=== PATIENT | female | born 1990 | race Two or more races ===

== ENCOUNTER 2017-09-01 23:15 | Emergency (ER) | payer SELFPAY ==
[2017-09-01 23:23] VITALS: BP 118/78; PULSE 84; TEMP 98.2; BMI 35.5
--- NOTE | 2017-09-01 23:33 | PDOC ---
History of Present Illness - General Chief Complaint: Chest Pain Stated Complaint: CHEST PAIN Time Seen by Provider: 09/01/17 23:17 - History of Present Illness Initial Comments: 09/01/17 23:30 26 F with no PMH presents to ER with chest pain. Pt states that the pain began while at rest at about 7pm (4.5 hours prior to arrival to ER). She states that it was midsternal nonradiating. Pt denies any SOB associated with the pain and denies any exacerbating or alleviating factors. Pain is nonexertional, non- pleuritic. She denies F/C. Denies cough. She states that she felt very anxious at the time but is unsure whether the anxiety began before or after the pain. She denies h/o panic attacks or anxiety. Pt denies leg swelling, denies h/o DVT/ PE. Denies recent immobilization or travel. Is not on OCPs. Pt states that she had a similar episode several years ago but did not seek medical attention at the time. Past History - Past Medical History Allergies/Adverse Reactions: Allergies Allergy/AdvReac Type Severity Reaction Status Date / Time No Known Allergies Allergy Unverified 09/01/17 23:18 Home Medications: Ambulatory Orders NK [No Known Home Medication] 09/01/17 - Suicide/Smoking/Psychosocial Hx Smoking History: Unknown if ever smoked Have you smoked in the past 12 months: No Number of Cigarettes Smoked Daily: 0 Information on smoking cessation initiated: No Hx Alcohol Use: No Drug/Substance Use Hx: No Substance Use Type: None Review of Systems - Review of Systems Comments:: 09/01/17 23:32 "GENERAL/CONSTITUTIONAL: No fever or chills. No weakness. HEAD, EYES, EARS, NOSE AND THROAT: No change in vision. No ear pain or discharge. No sore throat. CARDIOVASCULAR: + chest pain , no shortness of breath. RESPIRATORY: No cough, wheezing, or hemoptysis. GASTROINTESTINAL: No nausea, vomiting, diarrhea or constipation. GENITOURINARY: No dysuria, frequency, or change in urination. MUSCULOSKELETAL: No joint or muscle swelling or pain. No neck or back pain. SKIN: No rash NEUROLOGIC: No headache, vertigo, loss of consciousness, or change in strength/ sensation. ENDOCRINE: No increased thirst. No abnormal weight change. HEMATOLOGIC/LYMPHATIC: No anemia, easy bleeding, or history of blood clots. ALLERGIC/IMMUNOLOGIC: No hives or skin allergy. " *Physical Exam - Vital Signs Last Vital Signs Temp Pulse Resp BP Pulse Ox 98.2 F 84 14 118/78 100 09/01/17 23:19 09/01/17 23:19 09/01/17 23:19 09/01/17 23:19 09/01/17 23:19 - Physical Exam Comments: 09/01/17 23:32 "GENERAL: Awake, alert, and fully oriented, in no acute distress HEAD: No signs of trauma EYES: PERRLA, EOMI, sclera anicteric, conjunctiva clear ENT: Auricles normal inspection, hearing grossly normal, nares patent, oropharynx clear without exudates. Moist mucosa NECK: Nontender, no stepoffs, Normal ROM, supple, no lymphadenopathy, JVD, or masses LUNGS: Breath sounds equal, clear to auscultation bilaterally. No wheezes, and no crackles HEART: Regular rate and rhythm, normal S1 and S2, no murmurs, rubs or gallops ABDOMEN: Soft, nontender, normoactive bowel sounds. No guarding, no rebound. No masses EXTREMITIES: Normal range of motion, no edema. No clubbing or cyanosis. No cords, erythema, or tenderness NEUROLOGICAL: Cranial nerves II through XII intact. 5/5 strength and sensation in all extremities, Normal speech, normal gait SKIN: Warm, Dry, normal turgor, no rashes or lesions noted. " Heart Score/ECG Review - History History: Slightly suspicious - Electrocardiogram EKG: Normal - Age Age: </= 45 - Risk Factors Based on the list above the patient has:: No risk factors known - Troponin Troponin: </= normal limit - Score Heart Score - Total: 0 - ECG Impressions Comment:: 09/01/17 23:54 NSR, no OTTO/STDs, no TWIs, intervals wnl, axis wnl ED Treatment Course - LABORATORY CBC & Chemistry Diagram: 09/01/17 23:30 09/01/17 23:30 - ADDITIONAL ORDERS Additional order review: Laboratory Results 09/01/17 09/01/17 09/01/17 23:30 23:30 23:30 Sodium 140 Potassium 4.1 Chloride 105 Carbon Dioxide 28 Anion Gap 7 L BUN 12 Creatinine 0.8 Creat Clearance w eGFR > 60 Random Glucose 83 Calcium 8.8 Total Bilirubin 0.2 AST 16 ALT 30 Alkaline Phosphatase 83 Creatine Kinase 262 H Creatine Kinase Index CK-MB (CK-2) < 1.000 Troponin I < 0.02 Total Protein 7.5 Albumin 3.7 Urine HCG, Qual Negative 09/01/17 23:30 RBC 4.08 MCV 88.1 MCHC 34.4 RDW 12.5 MPV 8.8 Neutrophils % 50.9 Lymphocytes % 35.3 Monocytes % 12.1 H Eosinophils % 1.3 Basophils % 0.4 - RADIOLOGY Radiology Studies Ordered: Category Date Time Status CHEST PA & LAT [RAD] Stat Radiology 09/01/17 23:29 Taken Medical Decision Making - Medical Decision Making 09/01/17 23:33 26 F with sudden onset midsternal chest pain. Atypical in nature. Pt with no cardiac risk factors, so suspicion is low for ACS. Pt also with no PE risk factors and PERC score 0, making PE unlikely. Pain may be msk or may be anxiety related. - Labs, trop - EKG - CXR 09/02/17 01:41 CBC,CMP WBC 7.1 K/mm3 (4.0-10.0) 09/01/17 23:30 RBC 4.08 M/mm3 (3.60-5.2) 09/01/17 23:30 Hgb 12.4 GM/dL (10.7-15.3) 09/01/17 23:30 Hct 36.0 % (32.4-45.2) 09/01/17 23:30 MCV 88.1 fl (80-96) 09/01/17 23:30 MCH 30.3 pg (25.7-33.7) 09/01/17 23:30 MCHC 34.4 g/dl (32.0-36.0) 09/01/17 23:30 RDW 12.5 % (11.6-15.6) 09/01/17 23:30 Plt Count 278 K/MM3 (134-434) 09/01/17 23:30 MPV 8.8 fl (7.5-11.1) 09/01/17 23:30 Neutrophils % 50.9 % (42.8-82.8) 09/01/17 23:30 Lymphocytes % 35.3 % (8-40) 09/01/17 23:30 Monocytes % 12.1 % (3.8-10.2) H 09/01/17 23:30 Eosinophils % 1.3 % (0-4.5) 09/01/17 23: Basophils % 0.4 % (0-2.0) 09/01/17 23:30 Sodium 140 mmol/L (136-145) 09/01/17 23:30 Potassium 4.1 mmol/L (3.5-5.1) 09/01/17 23:30 Chloride 105 mmol/L (98-107) 09/01/17 23:30 Carbon Dioxide 28 mmol/L (21-32) 09/01/17 23:30 Anion Gap 7 (8-16) L 09/01/17 23:30 BUN 12 mg/dL (7-18) 09/01/17 23:30 Creatinine 0.8 mg/dL (0.55-1.02) 09/01/17 23:30 Creat Clearance w eGFR > 60 (>60) 09/01/17 23:30 Random Glucose 83 mg/dL (74-106) 09/01/17 23:30 Calcium 8.8 mg/dL (8.5-10.1) 09/01/17 23:30 Total Bilirubin 0.2 mg/dL (0.2-1.0) 09/01/17 23:30 AST 16 U/L (15-37) 09/01/17 23:30 ALT 30 U/L (12-78) 09/01/17 23:30 Alkaline Phosphatase 83 U/L (45-117) 09/01/17 23:30 Creatine Kinase 262 IU/L (26-192) H 09/01/17 23:30 Creatine Kinase Index % (0.0-5.0) 09/01/17 23:30 CK-MB (CK-2) < 1.000 ng/mL (0.5-3.6) 09/01/17 23:30 Troponin I < 0.02 ng/ml (0.00-0.05) 09/01/17 23:30 Total Protein 7.5 g/dl (6.4-8.2) 09/01/17 23:30 Albumin 3.7 g/dl (3.4-5.0) 09/01/17 23:30 Labs unremarkable. Trop negative. CXR clear. Pt reassessed - appears well and no longer complaining of chest pain. Clinically stable for DC at this time. *DC/Admit/Observation/Transfer Diagnosis at time of Disposition: Chest pain - Discharge Dispostion Disposition: HOME Condition at time of disposition: Good - Patient Instructions Printed Discharge Instructions: DI for Atypical Chest Pain Additional Instructions: Take motrin or tylenol as needed for pain. Please follow up with your primary care doctor within 1 week to have your chest pain further evaluated. You may need a referral to a al[employer]nae secretary. If you experience worsening pain, shortness of breath, or any other concerning symptoms, return immediately to the ER. - Attestations Physician Attestion: 09/02/17 02:04 I, Dr. Bobby White MD, attest that this document has been prepared under my direction and personally reviewed by me in its entirety. I further attest, that it accurately reflects all work, treatment, procedures and medical decision -making performed by me.
[2017-09-02 00:36] LABS: BASOPHIL 0.4 % (0-2.0); EOSINOPHIL 1.3 % (0-4.5); MCH 30.3 pg (25.7-33.7); MCHC 34.4 g/dl (32.0-36.0); MEAN CELL VOLUME 88.1 fl (80-96); MEAN PLT VOLUME 8.8 fl (7.5-11.1); NEUTROPHILS 50.9 % (42.8-82.8); PLATELET COUNT 278 K/MM3 (134-434); RDW 12.5 % (11.6-15.6); WHITE BLOOD COUNT 7.1 K/mm3 (4.0-10.0)
[2017-09-02 01:04] LABS: ALBUMIN 3.7 g/dl (3.4-5.0); ALK PHOS 83 U/L (45-117); ANION GAP 7 (8-16); BILIRUBIN,TOTAL 0.2 mg/dL (0.2-1.0); CALCIUM 8.8 mg/dL (8.5-10.1); CO2 28 mmol/L (21-32); CREATININE 0.8 mg/dL (0.55-1.02); GLUCOSE,RANDOM 83 mg/dL (74-106); SGOT/AST 16 U/L (15-37); SGPT/ALT 30 U/L (12-78); TOT PROT 7.5 g/dl (6.4-8.2)
[2017-09-02 01:15] LABS: CPK 262 IU/L (26-192); TROPONIN I < 0.02 ng/ml (0.00-0.05)
--- NOTE | 2017-09-02 14:09 | EKG ---
Test Reason : Blood Pressure : / mmHG Vent. Rate : 082 BPM Atrial Rate : 082 BPM P-R Int : 146 ms QRS Dur : 090 ms QT Int : 394 ms P-R-T Axes : 051 034 017 degrees QTc Int : 460 ms NORMAL SINUS RHYTHM NORMAL ECG NO PREVIOUS ECGS AVAILABLE Confirmed by JEEVAN ALFARO MD ([id number]) on 09/02/2017 2:09:05 PM Referred By: DR TORRES Confirmed By:JEEVAN ALFARO MD
== END 2017-09-02 02:06 | disposition home or self-care (01) ==
LOC: FER 23:15
DX: R07.9 Chest pain, unspecified (principal)
CPT/HCPCS: 36415; 71020-TC; 80053; 82553; 84484; 84703; 85025; 93005; 99284-25

== ENCOUNTER 2019-10-20 15:39 | Emergency (ER) | payer OTHER ==
[2019-10-20 15:58] VITALS: BP 129/79; PULSE 89; TEMP 99; BMI 35.5
--- NOTE | 2019-10-20 18:02 | PDOC ---
Documentation entered by Bridget Gao SCRIBE, acting as scribe for Michael Nance MD. Michael Nance MD: This documentation has been prepared by the Murray reed Adrianna, SCRIBE, under my direction and personally reviewed by me in its entirety. I confirm that the documentation accurately reflects all work, treatment, procedures, and medical decision making performed by me. History of Present Illness - General Chief Complaint: Respiratory Stated Complaint: Cough w/ blood tinged sputum Time Seen by Provider: 10/20/19 16:13 - History of Present Illness Initial Comments: The patient is a 28 year old female, with a significant PMH of asthma, who presents to the ED for evaluation of cough for 5 days. Patient notes she originally developed a dry cough with post nasal drip 5 days ago, for which she took mucinex. Her symptoms seemed to be getting better, until 2 days ago her cough became productive of green sputum. Yesterday, she noticed that her sputum was blancas and bright red blood-tinged. She went to an Urgent Care for evaluation , and was told her CXR and labs were normal (d-dimer was up in the upper limits , but still within normal range). She was given a z-pack and a nasal spray, but came to the ED because of concern of her d-dimer level. Denies any coffee- ground appearance of sputum. Denies fever, chills, chest pain, SOB, nausea, vomit, dysuria, hematuria, diarrhea, constipation, leg swelling, sick contacts, runny nose, sore throat, body aches. Allergies: NKA, NKDA Surgical History: None reported Social History: Occasional hookah use. Denies EtOH, tobacco, or illicit drug use PCP: Dr. Chrissy Alfonso Past History - Past Medical History Allergies/Adverse Reactions: Allergies Allergy/AdvReac Type Severity Reaction Status Date / Time No Known Allergies Allergy Verified 10/20/19 15:43 Home Medications: Ambulatory Orders NK [No Known Home Medication] 09/01/17 COPD: No - Psycho Social/Smoking Cessation Hx Smoking History: Never smoked Have you smoked in the past 12 months: No Number of Cigarettes Smoked Daily: 0 Hx Alcohol Use: No Drug/Substance Use Hx: No Substance Use Type: None Review of Systems - Review of Systems Comments:: Constitutional - Pt denies Fever, Chills, weakness, HEENT: denies vision changes, sore throat Respiratory: +Hemoptysis. +Productive cough of green/blancas sputum. Denies sob. Cardiac: denies chest pain, palpitations, lightheadedness, leg swelling Abd/GI: denies abd pain, nausea, vomiting, blood per rectum, melena, diarrhea : denies dysuria, frequency, discharge Musculoskeletal - denies back pain, joint swelling skin - denies bruising, erythema, rash neurological: denies headache, numbness, focal weakness, tingling, ataxia, weakness hematologic: denies anemia, easy bruising, easy bleeding. *Physical Exam - Vital Signs Last Vital Signs Temp Pulse Resp BP Pulse Ox 99 F 89 18 129/79 99 10/20/19 15:47 10/20/19 15:47 10/20/19 15:47 10/20/19 15:47 10/20/19 15:47 - Physical Exam Comments: GENERAL: The patient is awake, alert, and fully oriented, Nontoxic - in no acute distress. HEAD: Normocephalic, atraumatic. EYES: extraocular movements intact, sclera anicteric, conjunctiva clear. ENT: Normal voice, Moist mucous membranes. NECK: Normal range of motion, supple without lymphadenopathy, JVD, or masses. LUNGS: Breath sounds equal, clear to auscultation bilaterally. No wheezes, no crackles, no rales. HEART: Regular rate and rhythm, normal S1 and S2 without murmur, rub or gallop. ABDOMEN: Soft, nontender, normoactive bowel sounds. No guarding, no rebound. No masses. EXTREMITIES: Normal range of motion, no edema. No clubbing or cyanosis. No cords, erythema, or tenderness. NEUROLOGICAL: No facial asymmetry, Normal speech, normal gait. PSYCH: Normal mood, normal affect. SKIN: Warm, Dry, normal turgor, no rashes or lesions noted. Medical Decision Making - Medical Decision Making 10/20/19 17:36 28-year-old female no significant past medical history presenting with complaint of cough Productive of greenish-cabrera sputum and occasionaland hemoptysis For the past several days without associated chest pain, dyspnea exertion or shortness of breath, leg swelling, calf pain. Patient is a low risk for PE Suspect this is bronchitis The patient did Have an initial work-up at urgent care where she had blood work including CBC CMP which was normal as well as a d-dimer that the patient stated was The normal limits. Patient also had a chest x-ray and was given antibiotics The patient was encouraged to come to the ER by her mother, I provided Anticipatory guidance, the patient is comfortable with discharge patient with outpatient management. I discussed the physical exam findings, ancillary test results and final diagnoses with the patient. I answered all of the patient's questions. The patient was satisfied with the care received and felt comfortable with the discharge plan and treatment plan. The patient will call their primary care physician within 24 hours to arrange follow-up and will return to the Emergency Department with any new, persistent or worsening symptoms. Discharge - Discharge Information Problems reviewed: Yes Clinical Impression/Diagnosis: Bronchitis Condition: Stable Disposition: HOME - Admission No - Follow up/Referral Referrals: Chrissy Alfonso MD [Non Staff, Medical] - - Patient Discharge Instructions Patient Printed Discharge Instructions: DI for Acute Bronchitis Additional Instructions: Return to the emergency department immediately with ANY new, persistent or worsening symptoms Including any associated chest pain, shortness of breath, difficulty breathing or any other concerns Take your antibiotics as prescribed You MUST call and follow up with your doctor in 3-4 days for further evaluation of your symptoms. Results were discussed with you. Please make sure your doctor reviews the results of your emergency evaluation. Your Emergency Department visit is not complete without a follow up with your doctor. Print Language: YORUBA - Post Discharge Activity
== END 2019-10-20 17:45 | disposition home or self-care (01) ==
LOC: FER 15:39
DX: J20.9 Acute bronchitis, unspecified (principal)
CPT/HCPCS: 99281-25